=== PATIENT | male | born 1995 | race Caucasian/White ===

== ENCOUNTER 2017-10-21 11:19 | Emergency (ER) | payer BC, OTHER ==
[~2017-10-21] VITALS: Ht 170.2 cm; Wt 77.1 kg
[2017-10-21] MEDS ORDERED: PENICILLIN V P500 MG PO (11:33)
[2017-10-21] MEDS ORDERED: MOBIC7.5 MG PO (11:33)
[2017-10-21] MEDS ORDERED: HYDROCODONE-AP1 EAC6 PO (11:33)
[2017-10-21 12:06] VITALS: BP 135/87
== END 2017-10-21 11:50 | disposition home or self-care (01) ==
LOC: ER 11:19
DX: K04.7 Periapical abscess without sinus (principal); F17.210 Nicotine dependence, cigarettes, uncomplicated

== ENCOUNTER 2017-12-16 18:24 | Emergency (ER) | payer BC, OTHER ==
[~2017-12-16] VITALS: Ht 170.2 cm; Wt 70.8 kg
[~2017-12-16 18:24] MED LIST: HYDROCODONE-AP1 EAC6 PO; MOBIC7.5 MG PO; PENICILLIN V P500 MG PO
[2017-12-16 18:29] VITALS: BP 123/77
[2017-12-16] MEDS ORDERED: IBUPROFEN 600600 M1 PO (18:47)
[2017-12-16] MEDS ORDERED: PENICILLIN V P500 MG PO (18:47)
== END 2017-12-16 18:56 | disposition home or self-care (01) ==
LOC: ER 18:24
DX: K02.9 Dental caries, unspecified (principal); F17.210 Nicotine dependence, cigarettes, uncomplicated